=== PATIENT | male | born 1990 | race Caucasian/White ===

== ENCOUNTER 2018-10-18 21:23 | Emergency (ER) | payer SELFPAY ==
[2018-10-18 21:19] VITALS: BP 149/77; PULSE 112; RESP 11; TEMP 37.2; O2SAT 99
--- NOTE | 2018-10-18 21:21 | W.ED.GENAD ---
Discharge Plan Disposition Patient Disposition: HOME Condition: Good Discharge Details Chief Complaint: OD/Poison Clinical Impression: Accidental heroin overdose Reason For Visit: MANE Primary Care Provider: Karolyn Rahman V ED Provider: Cirilo Roberson Home Meds and New Rx's Prescriptions: No Action No Known Home Meds RF: 0 Discharge Instructions Instructions: Narcotic Abuse (ED) Additional Instructions: Please do not use drugs or alcohol tonight. Stay with somebody responsible who can keep an eye on you. If you decide you want help please contact [facility]. Return to ED for any problems Referrals: [facility] [Provider Group] Medical Decision Making Patient arrives here status post heroin overdose requiring CPR by bystanders and Narcan by EMS. Now awake and alert without complaint of. Reports not using any more heroin than he typically does. Is alert and oriented and has capacity. He is a little bit sleepy. He has agreed to stay for the time being for observation. Patient has been stable. Vital signs are normal. Saturations on room air are normal. He has been here for 90 minutes now. I think he is safe for discharge home at this point. We will plan on discharge once his girlfriend returns. HPI General Mode of arrival: EMS. Date/Time Provider Initiated Documentation: 10/18/18 21:34. Limitations to Documentation: no limitations. Information obtained by: patient. HPI Narrative: Patient is brought in by EMS after respiratory arrest from heroin overdose. Patient received 4 mg of intranasal Narcan. Bystanders did perform CPR per dispatch instructions although it is not clear whether he truly had a cardiac arrest. He definitely was unresponsive and not breathing. He awoke and had no complaints to speak of after receiving the Narcan. He is transported in for evaluation. Patient tells me that he shot up 2 bags of heroin which is his normal. He reports that it was not from a new supplier. He does not use daily but he does use fairly regularly. Unclear why he had an overdose tonight, except for the possibility of latest batch of heroin. Related Data Home Medications Medication Instructions Recorded Confirmed Unknown [No Known Home Meds] 06/08/15 10/18/18 Allergies Allergy/AdvReac Type Severity Reaction Status Date / Time No Known Allergies Allergy Unverified 10/18/18 21:32 Review of Systems Constitutional Denies fever(s) and Denies headache(s) ENT Denies headache(s), Denies nasal congestion, Denies neck pain and Denies sore throat Cardiovascular Denies chest pain, Denies edema and Denies dyspnea Respiratory Denies cough and Denies dyspnea Gastrointestinal Denies abdominal pain, Denies diarrhea, Denies nausea and Denies vomiting Musculoskeletal Denies back pain, Denies neck pain and Denies numbness Integumentary/Breasts Denies erythema Neurologic Denies abnormal speech, Denies behavioral changes, Denies headache(s), Denies focal weakness and Denies numbness Psychiatric Denies behavioral changes, Denies homicidal ideation and Denies suicidal ideation [facility] Medical History Narcotic abuse (Chronic) Social History Smoking/Tobacco Use Status: Current every day substance use type: heroin and IV drugs Exam Const General: cooperative, comfortable and no acute distress Orientation: alert and oriented x3 HENMT Head: normocephalic and atraumatic Eyes Pupils: PERRL EOM: EOM intact bilaterally Neck Neck: trachea midline and supple Resp Effort & Inspection: normal respiratory effort Auscultation: clear to auscultation bilaterally Cardio Rate: regular rate Rhythm: regular rhythm Heart Sounds: S1 normal and S2 normal GI Inspection: normal to inspection and non-distended Palpation: soft and nontender Skin General skin exam: no erythema Neuro General: alert, oriented x3, no focal motor deficits and CN's II-XI intact bilaterally Cognition: normal cognition Speech: speech normal Sensory Exam: no sensory deficits noted Psych Appearance: grossly normal Mental Status: mental status grossly normal Speech and Movement: speech and movement normal Mood: congruent mood Affect: normal affect Attitude: cooperative Thought Process: normal Thought Content: normal
[2018-10-18 21:41] VITALS: RESP 17
[2018-10-18 23:26] VITALS: BP 134/77; PULSE 94; RESP 15; O2SAT 98
== END 2018-10-18 23:00 | disposition home or self-care (01) ==
PROVIDERS: Emergency Provider Emergency Medicine; PCP Pediatrics
DX: T40.1X1A Poisoning by heroin, accidental (unintentional), initial encounter (principal); F11.20 Opioid dependence, uncomplicated
CPT/HCPCS: 99283